=== PATIENT | male | born 1935 | race Asian ===

== ENCOUNTER 2024-01-07 12:46 | Inpatient (IN) | payer MEDICARE, OTHER ==
[~2024-01-07] VITALS: Ht 167.6 cm; Wt 45.6 kg
[2024-01-07 13:42] LABS: BASOPHILS # (AUTO) 0.2 K/UL (0.0-0.2); BASOPHILS % (AUTO) 2.7 % (0.0-2.0); EOSINOPHILS # (AUTO) 0.1 K/uL (0.0-0.7); EOSINOPHILS % (AUTO) 1.7 % (0.0-7.0); HEMOGLOBIN 9.9 g/dL (12.5-16.3); LYMPHOCYTES # (AUTO) 0.4 K/uL (0.8-4.8); LYMPHOCYTES % (AUTO) 6.8 % (20.5-51.5); MEAN CORPUSCULAR HEMOGLOBIN 34.1 uug (23.8-33.4); MEAN CORPUSCULAR HGB CONC 34 g/dL (32.5-36.3); MEAN CORPUSCULAR VOLUME 99.6 fL (73.0-96.2); MONOCYTES # (AUTO) 0.5 K/uL (0.1-1.30); MONOCYTES % (AUTO) 8.4 % (0.0-11.0); NEUTROPHILS % (AUTO) 80.4 % (38.5-71.5); PLATELET COUNT (AUTO) 252 K/uL (152-348); RED BLOOD CELL COUNT(AUTO) 2.91 MIL/uL (4.06-5.63); RED CELL DISTRIBUTION WIDTH 16.3 % (12.1-16.2); WHITE BLOOD COUNT (AUTO) 6.2 K/uL (3.6-10.2)
[2024-01-07 13:46] LABS: DIFFERENTIAL COMMENT 1
[2024-01-07 13:51] LABS: CALCIUM 8.6 mg/dL (8.5-10.1); CARBON DIOXIDE 29 mmol/L (21-32); CHLORIDE 94 mmol/L (98-107); CREATININE 5.5 mg/dL (0.6-1.3); GLUCOSE 120 mg/dL (74-106); POTASSIUM 4.8 mmol/L (3.5-5.1); SODIUM SERUM 135 mmol/L (136-145); UREA NITROGEN, BLOOD 35 mg/dL (7-18)
[2024-01-07 13:59] LABS: AMMONIA < 10 umol/L (11-32)
[2024-01-07 14:02] LABS: LACTIC ACID 2.1 mmol/L (0.4-2.0)
[2024-01-07 14:04] LABS: THYROID STIMULATING HORMONE 2.702 mIU/mL (0.358-3.740)
[2024-01-07 14:05] LABS: ETHANOL < 3 MG/DL (0-10)
[2024-01-07 14:08] LABS: ALANINE AMINOTRANSFERASE 22 U/L (16-63); ALBUMIN 2.8 g/dL (3.4-5.0); ALKALINE PHOSPHATASE 103 U/L (50-136); ASPARTATE AMINOTRANSFERASE 23 U/L (15-37); BILIRUBIN,DIRECT 0.1 mg/dL (0.0-0.2); BILIRUBIN,TOTAL 0.5 mg/dL (0.2-1.0)
[2024-01-07 14:09] LABS: ACETAMINOPHEN < 2.0 ug/mL (10-30)
[2024-01-07] MEDS ORDERED: CEFEPIME HCL 1 G VIAL ONE (14:39)
[2024-01-07] MEDS ORDERED: FOLI1TAB94 PO (14:47)
[2024-01-07] MEDS ORDERED: MELA10CA PO (14:47)
[2024-01-07] MEDS ORDERED: ONDA-104 PO (14:47)
[2024-01-07] MEDS ORDERED: BISA10SU61 RC (14:47)
[2024-01-07] MEDS ORDERED: SACC250C9 PO (14:47)
[2024-01-07] MEDS ORDERED: ACET325C7 PO (14:47)
[2024-01-07] MEDS ORDERED: LEUP22.53 IM (14:47)
[2024-01-07] MEDS ORDERED: IPRA0.2S48 NEB ×2 (14:47)
[2024-01-07] MEDS ORDERED: AMLO-212 PO (14:47)
[2024-01-07] MEDS ORDERED: TAMS-3 PO (14:47)
[2024-01-07] MEDS ORDERED: BICA50TA49 PO (14:47)
[2024-01-07] MEDS ORDERED: VIT1TABL46 PO (14:47)
[2024-01-07] MEDS ORDERED: SENN8.6T19 PO (14:47)
[2024-01-07] MEDS ORDERED: DOCU100T2 PO (14:47)
[2024-01-07] MEDS ORDERED: CALC667T8 PO (14:47)
[2024-01-07] MEDS ORDERED: ACET-2605 PO (14:47)
[2024-01-07] MEDS ORDERED: POLY17PO4 PO (14:47)
[2024-01-07] MEDS ORDERED: HEPA500034 SQ (14:47)
[2024-01-07] MEDS ORDERED: ALBU2.5V38 NEB (14:47)
[2024-01-07] MEDS ORDERED: HYDR-4077 PO (14:47)
[2024-01-07] MEDS ORDERED: BUDE0.5A4 NEB (14:47)
[2024-01-07] MEDS ORDERED: ASPI81TA31 PO (14:47)
[2024-01-07] MEDS ORDERED: ATOR40TA PO (14:47)
[2024-01-07 14:49] LABS: *BILIRUBIN,URIN NEGATIVE (NEGATIVE); *CLARITY,URINE CLEAR (CLEAR); *COLOR,URINE YELLOW (YELLOW); *KETONES,URINE NEGATIVE (NEGATIVE); *PROTEIN,URINE 2+ (NEGATIVE); *UROBILINOGEN,URINE 0.2 E.U./dl (NORMAL); LEUKOCYTE ESTERASE ,URINE NEGATIVE (NEGATIVE); NITRITE, URINE NEGATIVE (NEGATIVE); PH,URINE 8.5 (5.0-8.0); UGLUCOSE 1+ (NEGATIVE)
[2024-01-07 14:50] LABS: *BLOOD, URINE TRACE (NEGATIVE)
[2024-01-07] MEDS: CEFEPIME HCL 1 G in IV DEXTROSE 5% 50 ML IV ONE (14:51)
[2024-01-07 15:02] LABS: *AMPHETAMINE, URINE NEGATIVE (NEGATIVE); *BARBITURATE, URINE NEGATIVE (NEGATIVE); *BENZODIAZEPINE, URINE NEGATIVE (NEGATIVE); *CANNABINOID, URINE NEGATIVE (NEGATIVE); *COCCAINE, URINE NEGATIVE (NEGATIVE); *OPIATE, URINE NEGATIVE (NEGATIVE); *PHENCYCLIDINE SCREEN,URINE NEGATIVE (NEGATIVE); FENTANYL, URINE NEGATIVE (NEGATIVE)
[2024-01-07 15:09] LABS: BACTERIA,URINE NONE SEEN /HPF (NONE SEEN); RBC,URINE 0-3 /HPF (0-3); SQUAMOUS EPITHELIAL CELL,UR FEW /HPF (NONE SEEN); WBC,URINE 0-3 /HPF (0-3)
[2024-01-07 17:00] VITALS: BP 106/65; TEMP 97; O2SAT 98
[2024-01-07] MEDS ORDERED: BISACODYL 10 MG SUPP.RECT RC PRN (18:45)
[2024-01-07] MEDS ORDERED: ACETAMINOPHEN 325 MG TABLET PO PRN (18:45)
[2024-01-07] MEDS ORDERED: Medication Not On Formulary EA (Melatonin 10 MG) PO PRN (18:45)
[2024-01-07] MEDS ORDERED: ALBUTEROL SULFATE 2.5 MG/3 ML NEBU NEB PRN (18:45)
[2024-01-07] MEDS ORDERED: IPRATROPIUM BROMIDE 0.5 MG/2.5 ML NEBU NEB PRN (18:45)
[2024-01-07 20:00] VITALS: BP 124/62; TEMP 97.4; O2SAT 95
[2024-01-07] MEDS: CALCIUM ACETATE 667 MG CAP/TAB PO SCH (20:08)
[2024-01-07] MEDS: TAMSULOSIN HCL 0.4 MG CAP.SR.24H PO SCH (20:21)
[2024-01-07] MEDS: ATORVASTATIN 40 MG TABLET PO SCH (20:21)
[2024-01-07] MEDS: HEPARIN SODIUM,PORCINE 5,000 UNITS/ML VIAL SQ SCH (20:22)
[2024-01-07 20:43] VITALS: O2SAT 95
[2024-01-07] MEDS: PIPERACILLIN/TAZO 2.25 G in IV DEXTROSE 5% 50 ML IV SCH (22:44)
[2024-01-07 23:59] VITALS: BP 129/60; TEMP 98.2; O2SAT 95
[2024-01-08 05:16] VITALS: BP 120/64; TEMP 98.3; O2SAT 94
[2024-01-08] MEDS: PANTOPRAZOLE SODIUM 40 MG TABLET.DR PO SCH (06:35)
[2024-01-08 07:19] LABS: BASOPHILS % (AUTO) 0.6 % (0.0-2.0); EOSINOPHILS # (AUTO) 0.1 K/uL (0.0-0.7); EOSINOPHILS % (AUTO) 2.3 % (0.0-7.0); HEMATOCRIT 23.8 % (36.7-47.1); HEMOGLOBIN 8.3 g/dL (12.5-16.3); LYMPHOCYTES # (AUTO) 0.6 K/uL (0.8-4.8); MEAN CORPUSCULAR HEMOGLOBIN 34.1 uug (23.8-33.4); MEAN CORPUSCULAR HGB CONC 35 g/dL (32.5-36.3); MONOCYTES # (AUTO) 0.6 K/uL (0.1-1.30); MONOCYTES % (AUTO) 9.2 % (0.0-11.0); NEUTROPHILS # (AUTO) 4.9 K/uL (1.8-8.9); NEUTROPHILS % (AUTO) 78.9 % (38.5-71.5); PLATELET COUNT (AUTO) 201 K/uL (152-348); RED CELL DISTRIBUTION WIDTH 16.2 % (12.1-16.2); WHITE BLOOD COUNT (AUTO) 6.2 K/uL (3.6-10.2)
[2024-01-08 07:28] LABS: IRON, SERUM 29 ug/dL (50-175)
[2024-01-08 07:33] VITALS: BP 114/61; TEMP 98.1; O2SAT 96
[2024-01-08 07:43] LABS: DIFFERENTIAL COMMENT 1; RED BLOOD CELL COUNT(AUTO) 2.43 MIL/uL (4.06-5.63)
[2024-01-08 07:49] LABS: ALANINE AMINOTRANSFERASE 20 U/L (16-63); ALBUMIN 2.2 g/dL (3.4-5.0); ALKALINE PHOSPHATASE 72 U/L (50-136); ASPARTATE AMINOTRANSFERASE 12 U/L (15-37); BILIRUBIN,TOTAL 0.5 mg/dL (0.2-1.0); CALCIUM 7.7 mg/dL (8.5-10.1); CARBON DIOXIDE 29 mmol/L (21-32); CHLORIDE 95 mmol/L (98-107); CHOLESTEROL 127 mg/dL (<200); CREATININE 6.5 mg/dL (0.6-1.3); GLUCOSE 98 mg/dL (74-106); HDL CHOLESTEROL 47 mg/dL (40-60); MAGNESIUM 1.9 mg/dL (1.8-2.4); PHOSPHOROUS 4.4 mg/dL (2.5-4.9); POTASSIUM 4.3 mmol/L (3.5-5.1); SODIUM SERUM 132 mmol/L (136-145); TOTAL PROTEIN, SERUM 6.6 g/dL (6.4-8.2); TRIGLYCERIDES 71 MG/DL (30-150); UREA NITROGEN, BLOOD 42 mg/dL (7-18)
[2024-01-08] MEDS: SENNOSIDES 1 TABLET PO SCH (08:06)
[2024-01-08] MEDS: FOLIC ACID/VITAMIN B COMP W-C TABLET PO SCH (08:06)
[2024-01-08] MEDS: ASPIRIN EC 81 MG TABLET.DR PO SCH (08:06)
[2024-01-08] MEDS: DOCUSATE SODIUM 250 MG CAPSULE PO SCH (08:06)
[2024-01-08] MEDS: FOLIC ACID 1 MG TABLET PO SCH (08:06)
[2024-01-08] MEDS: CULTURELLE CAPSULE PO SCH (08:06)
[2024-01-08] MEDS: BICALUTAMIDE 50 MG TABLET PO SCH (08:30)
[2024-01-08] MEDS ORDERED: Medication Not On Formulary EA (Vit B Cmplx 3/Fa/Vit C/Biotin (Rena-Vite Rx Tablet) 1 EA PO SCH (09:00)
[2024-01-08] MEDS ORDERED: SACCHAROMYCES BOULARDII 500 MG PO SCH (09:00)
[2024-01-08 11:26] VITALS: BP 114/58; TEMP 98.2; O2SAT 94
[2024-01-08] MEDS: ONDANSETRON 4 MG/2 ML VIAL IV PRN (12:34)
[2024-01-08 15:32] VITALS: BP 96/55; TEMP 97.7; O2SAT 96
[2024-01-08] MEDS: NEPRO (VANILLA) 237 ML CAN PO SCH (16:19)
[2024-01-08] MEDS: SODIUM CHLORIDE 3% FOR INHALATION 15 ML NEBU IH ONE (21:48)
[2024-01-09] VITALS (7 sets, daily range): BP systolic 94–105; BP diastolic 50–53; TEMP 97.7–98.6; O2SAT 94–97
[2024-01-09 06:40] LABS: BASOPHILS % (AUTO) 0.3 % (0.0-2.0); EOSINOPHILS # (AUTO) 0.1 K/uL (0.0-0.7); EOSINOPHILS % (AUTO) 0.8 % (0.0-7.0); HEMATOCRIT 24.6 % (36.7-47.1); HEMOGLOBIN 8.8 g/dL (12.5-16.3); LYMPHOCYTES # (AUTO) 0.2 K/uL (0.8-4.8); MEAN CORPUSCULAR HGB CONC 36 g/dL (32.5-36.3); MEAN CORPUSCULAR VOLUME 98.3 fL (73.0-96.2); MONOCYTES # (AUTO) 0.3 K/uL (0.1-1.30); MONOCYTES % (AUTO) 3.6 % (0.0-11.0); NEUTROPHILS # (AUTO) 7.8 K/uL (1.8-8.9); NEUTROPHILS % (AUTO) 92.3 % (38.5-71.5); PLATELET COUNT (AUTO) 209 K/uL (152-348); RED BLOOD CELL COUNT(AUTO) 2.51 MIL/uL (4.06-5.63); RED CELL DISTRIBUTION WIDTH 15.8 % (12.1-16.2); WHITE BLOOD COUNT (AUTO) 8.4 K/uL (3.6-10.2)
[2024-01-09 06:46] LABS: DIFFERENTIAL COMMENT 1
[2024-01-09 06:50] LABS: ALANINE AMINOTRANSFERASE 11 U/L (16-63); ALBUMIN 2.3 g/dL (3.4-5.0); ALKALINE PHOSPHATASE 75 U/L (50-136); ASPARTATE AMINOTRANSFERASE 14 U/L (15-37); BILIRUBIN,TOTAL 0.5 mg/dL (0.2-1.0); CALCIUM 8.3 mg/dL (8.5-10.1); CARBON DIOXIDE 28 mmol/L (21-32); CHLORIDE 97 mmol/L (98-107); CREATINE KINASE, TOTAL 13 U/L (39-308); CREATININE 4.7 mg/dL (0.6-1.3); GLUCOSE 87 mg/dL (74-106); MAGNESIUM 1.9 mg/dL (1.8-2.4); PHOSPHOROUS 2.7 mg/dL (2.5-4.9); POTASSIUM 3.7 mmol/L (3.5-5.1); SODIUM SERUM 136 mmol/L (136-145); TOTAL PROTEIN, SERUM 6.7 g/dL (6.4-8.2); UREA NITROGEN, BLOOD 23 mg/dL (7-18)
[2024-01-09] MEDS: PROTEIN SUPPLEMENT (PROSTAT) 30 ML LIQUID PO SCH (08:19)
[2024-01-10 00:15] VITALS: BP 114/54; TEMP 97.6; O2SAT 95
[2024-01-10 05:00] VITALS: BP 111/53; TEMP 97.6; O2SAT 95
[2024-01-10 07:19] LABS: BASOPHILS % (AUTO) 0.2 % (0.0-2.0); EOSINOPHILS # (AUTO) 0.2 K/uL (0.0-0.7); EOSINOPHILS % (AUTO) 2.6 % (0.0-7.0); HEMATOCRIT 22.9 % (36.7-47.1); LYMPHOCYTES # (AUTO) 0.6 K/uL (0.8-4.8); LYMPHOCYTES % (AUTO) 7.6 % (20.5-51.5); MEAN CORPUSCULAR HEMOGLOBIN 34.5 uug (23.8-33.4); MEAN CORPUSCULAR HGB CONC 35 g/dL (32.5-36.3); MEAN CORPUSCULAR VOLUME 99.1 fL (73.0-96.2); MONOCYTES # (AUTO) 0.5 K/uL (0.1-1.30); MONOCYTES % (AUTO) 6.8 % (0.0-11.0); NEUTROPHILS # (AUTO) 6.4 K/uL (1.8-8.9); NEUTROPHILS % (AUTO) 82.8 % (38.5-71.5); PLATELET COUNT (AUTO) 204 K/uL (152-348); RED CELL DISTRIBUTION WIDTH 15.8 % (12.1-16.2); WHITE BLOOD COUNT (AUTO) 7.7 K/uL (3.6-10.2)
[2024-01-10 07:34] LABS: DIFFERENTIAL COMMENT 1; RED BLOOD CELL COUNT(AUTO) 2.31 MIL/uL (4.06-5.63)
[2024-01-10 07:40] LABS: CALCIUM 8.4 mg/dL (8.5-10.1); CARBON DIOXIDE 29 mmol/L (21-32); CHLORIDE 97 mmol/L (98-107); CREATININE 6.6 mg/dL (0.6-1.3); GLUCOSE 94 mg/dL (74-106); MAGNESIUM 1.9 mg/dL (1.8-2.4); PHOSPHOROUS 3.2 mg/dL (2.5-4.9); POTASSIUM 4.2 mmol/L (3.5-5.1); SODIUM SERUM 137 mmol/L (136-145); UREA NITROGEN, BLOOD 36 mg/dL (7-18)
[2024-01-10 08:53] VITALS: BP 97/55; TEMP 98.1; O2SAT 96
[2024-01-10 11:06] LABS: A/G RATIO 0.9 (0.7-1.7); ALBUMIN 2.8 g/dL (2.9-4.4); ALPHA-1-GLOBULIN 0.3 g/dL (0.0-0.4); ALPHA-2-GLOBULIN 1.1 g/dL (0.4-1.0); BETA GLOBULIN 0.8 g/dL (0.7-1.3); GLOBULIN, TOTAL 3.2 g/dL (2.2-3.9); HEPATITIS B SURFACE AB, QUAL Non Reactive (.); HEPATITIS B SURFACE AG Negative (Negative); HEPATITIS Be ANTIGEN Negative (Negative); M-SPIKE Not Observed g/dL (Not Observed); PTH, INTACT 102 pg/mL (15-65)
[2024-01-10 11:32] VITALS: BP 126/56; TEMP 98; O2SAT 94
[2024-01-10 15:37] VITALS: BP 95/45; TEMP 98; O2SAT 95
[2024-01-10 20:52] VITALS: BP 118/51; TEMP 98.2; O2SAT 98
[2024-01-10] MEDS: MELATONIN 3 MG TABLET PO PRN (21:04)
[2024-01-11 04:36] VITALS: BP 148/66; TEMP 98.9; O2SAT 93
[2024-01-11 07:29] LABS: BASOPHILS % (AUTO) 0.4 % (0.0-2.0); EOSINOPHILS # (AUTO) 0.1 K/uL (0.0-0.7); EOSINOPHILS % (AUTO) 1.8 % (0.0-7.0); HEMATOCRIT 23.3 % (36.7-47.1); HEMOGLOBIN 8.2 g/dL (12.5-16.3); LYMPHOCYTES # (AUTO) 0.7 K/uL (0.8-4.8); LYMPHOCYTES % (AUTO) 9.1 % (20.5-51.5); MEAN CORPUSCULAR HEMOGLOBIN 34.7 uug (23.8-33.4); MEAN CORPUSCULAR HGB CONC 35 g/dL (32.5-36.3); MEAN CORPUSCULAR VOLUME 98.7 fL (73.0-96.2); MONOCYTES # (AUTO) 0.5 K/uL (0.1-1.30); MONOCYTES % (AUTO) 7.1 % (0.0-11.0); NEUTROPHILS # (AUTO) 6.3 K/uL (1.8-8.9); NEUTROPHILS % (AUTO) 81.6 % (38.5-71.5); PLATELET COUNT (AUTO) 201 K/uL (152-348); RED CELL DISTRIBUTION WIDTH 15.8 % (12.1-16.2); WHITE BLOOD COUNT (AUTO) 7.7 K/uL (3.6-10.2)
[2024-01-11 07:35] LABS: DIFFERENTIAL COMMENT 1; RED BLOOD CELL COUNT(AUTO) 2.36 MIL/uL (4.06-5.63)
[2024-01-11 07:51] LABS: ALANINE AMINOTRANSFERASE 13 U/L (16-63); ALBUMIN 2.2 g/dL (3.4-5.0); ALKALINE PHOSPHATASE 75 U/L (50-136); ASPARTATE AMINOTRANSFERASE 7 U/L (15-37); BILIRUBIN,TOTAL 0.3 mg/dL (0.2-1.0); CARBON DIOXIDE 26 mmol/L (21-32); CHLORIDE 97 mmol/L (98-107); GLUCOSE 84 mg/dL (74-106); MAGNESIUM 1.9 mg/dL (1.8-2.4); PHOSPHOROUS 2.9 mg/dL (2.5-4.9); POTASSIUM 4.7 mmol/L (3.5-5.1); SODIUM SERUM 136 mmol/L (136-145); TOTAL PROTEIN, SERUM 6.7 g/dL (6.4-8.2); UREA NITROGEN, BLOOD 47 mg/dL (7-18)
[2024-01-11 07:52] LABS: CREATININE 8.3 mg/dL (0.6-1.3)
[2024-01-11 11:41] VITALS: BP 126/65
[2024-01-11] MEDS ORDERED: PROT30LI PO (14:29)
[2024-01-11] MEDS ORDERED: IPRA0.2S6 NEB (14:29)
[2024-01-11] MEDS ORDERED: PANT40TA49 PO (14:29)
[2024-01-11] MEDS ORDERED: CALC667C6 PO (14:29)
[2024-01-11] MEDS ORDERED: ASPI-618 PO (14:29)
[2024-01-11 15:57] VITALS: BP 131/62; TEMP 98.2
== END 2024-01-11 16:00 | DRG 871 ==
LOC: ER 12:46 → TELE3 16:56 → MEDSURG3 01-10 10:30
PROVIDERS: ADMIT Internal Medicine; ATTEND Internal Medicine
PROC: 5A1D70Z Performance of Urinary Filtration, Intermittent, Less than 6 Hours Per Day (ICD-10-PCS; principal; 2024-01-08)
DX: A41.9 Sepsis, unspecified organism (principal); E43 Unspecified severe protein-calorie malnutrition; G92.8 Other toxic encephalopathy; J69.0 Pneumonitis due to inhalation of food and vomit; N18.6 End stage renal disease; I13.11 Hypertensive heart and chronic kidney disease without heart failure, with stage 5 chronic kidney disease, or end stage renal disease; J44.0 Chronic obstructive pulmonary disease with (acute) lower respiratory infection; D68.59 Other primary thrombophilia; J90 Pleural effusion, not elsewhere classified; R64 Cachexia; J98.11 Atelectasis; I25.10 Atherosclerotic heart disease of native coronary artery without angina pectoris; D63.1 Anemia in chronic kidney disease; Z85.46 Personal history of malignant neoplasm of prostate; Z99.2 Dependence on renal dialysis; Z91.81 History of falling; R26.81 Unsteadiness on feet; R62.7 Adult failure to thrive; D75.89 Other specified diseases of blood and blood-forming organs; E21.0 Primary hyperparathyroidism; Z79.51 Long term (current) use of inhaled steroids; Z87.891 Personal history of nicotine dependence; Z79.899 Other long term (current) drug therapy
CPT/HCPCS: 36415; 70450; 71045; 82378; 83550; 83605; 83735; 83970; 84100; 84155; 84165; 84443; 84484; 85025; 85730; 86706; 87040; 87340; 87350; 90937; 93005; 93880; A4606; A4663; C1758; G0378; G0480; J0692; J1644; J2405; J2543; J7040

== ENCOUNTER 2024-01-29 15:11 | Emergency (ER) | payer MEDICARE, OTHER ==
[~2024-01-29] VITALS: Ht 152.4 cm; Wt 46.3 kg
[~2024-01-29 15:11] MED LIST: ACET325C7 PO; ALBU2.5V38 NEB; ASPI-618 PO; BICA50TA49 PO; BISA10SU61 RC; BUDE0.5A4 NEB; CALC667C6 PO; DOCU100T2 PO; FOLI1TAB94 PO; HYDR-4077 PO; IPRA0.2S6 NEB; LEUP22.53 IM; MELA10CA PO; ONDA-104 PO; PANT40TA49 PO; POLY17PO4 PO; PROT30LI PO; SACC250C9 PO; SENN8.6T19 PO; TAMS-3 PO; VIT1TABL46 PO
[2024-01-29 19:23] VITALS: BP 130/69; TEMP 98.5; O2SAT 100
== END 2024-01-29 19:23 ==
LOC: ER 15:11
DX: R55 Syncope and collapse (principal); R07.89 Other chest pain; I25.10 Atherosclerotic heart disease of native coronary artery without angina pectoris; E78.5 Hyperlipidemia, unspecified; N18.6 End stage renal disease; Z99.2 Dependence on renal dialysis; Z79.82 Long term (current) use of aspirin; Z79.899 Other long term (current) drug therapy
CPT/HCPCS: 71045; 93005; A4606; A4663